=== PATIENT | male | born 1955 | race Caucasian/White ===

== ENCOUNTER 2018-05-24 21:36 | Emergency (ER) | payer BC ==
[~2018-05-24] VITALS: Ht 177.8 cm; Wt 81.8 kg
[~2018-05-24 21:36] MED LIST: AMOXICILLIN 8751 TAB PO; LORTAB 5/500 501 TAB PO; NAPROSYN500 MG PO; NO HOME MEDICATIONS
[2018-05-24 21:42] VITALS: PULSE 83; TEMP 98.1
[2018-05-24 22:37] VITALS: BP 139/87
== END 2018-05-24 22:40 | disposition home or self-care (01) ==
LOC: COL.ER 21:36
DX: S09.90XA Unspecified injury of head, initial encounter (principal); S01.01XA Laceration without foreign body of scalp, initial encounter; F17.210 Nicotine dependence, cigarettes, uncomplicated; W01.198A Fall on same level from slipping, tripping and stumbling with subsequent striking against other object, initial encounter

== ENCOUNTER 2018-05-31 07:35 | Emergency (ER) | payer BC ==
[2018-05-31 07:40] VITALS: BP 165/97; PULSE 67; TEMP 97.9
== END 2018-05-31 07:42 | disposition home or self-care (01) ==
LOC: COL.ER 07:35
DX: S01.01XD Laceration without foreign body of scalp, subsequent encounter (principal); X58.XXXD Exposure to other specified factors, subsequent encounter